=== PATIENT | male | born 1950 | race Caucasian/White ===

== ENCOUNTER → 2021-07-21 | Day surgery (SDC) | payer MEDICARE, OTHER ==
[~2021-07-21] VITALS: Ht 182.9 cm; Wt 61.2 kg
[~2021-07-21] MED LIST: ALBUTEROL2.5 MG/3 M NEB; BYSTOLIC20 MG PO; HCTZ25 MG PO; NORCO 5-325 TA1 EACH PO; ONDANSETRON ODT8 MG PO; SIMVASTATIN10 MG PO; WARFARIN SODIUM5 MG PO
[2021-07-21 09:55] LABS: HCT 45.6 % (42.0-52.0); HGB 14.9 g/dl (13.2-18.0); MCHC 32.7 g/dL (32.0-36.0); MCV 100.9 fL (78.0-100.0); MPV 8.9 fL (6.0-9.5); RBC 4.52 M/uL (4.70-6.00); RDW 12.7 % (11.5-14.0); WBC 7.6 K/uL (4.0-10.5)
[2021-07-21 10:15] LABS: ALBUMIN 3.8 g/dL (3.4-5.0); BILIRUBIN - TOTAL 0.8 mg/dL (0.2-1.0); BUN/CREAT RATIO (CALC) 14.5 RATIO; CREATININE 0.83 mg/dL (0.67-1.17); GLOBULIN (CALCULATION) 3.5 g/dL; POTASSIUM 4.1 mmol/L (3.5-5.1); TOTAL PROTEIN 7.3 g/dL (6.4-8.2)
[2021-07-21 10:16] LABS: INR 0.98 (0.9-1.2); PROTHROMBIN TIME 12.4 SECONDS (11.8-13.4)
--- NOTE | 2021-07-21 15:33 | NUR ---
1510: PT AMBULATORY WITH SUPERVISION TO THE RESTROOM. VOIDED MODERATE AMOUNT OF CLEAR, YELLOW URINE. TOLERATED WELL.
== END | disposition home or self-care (01) ==
LOC: FAS 09:00
PROVIDERS: Surgery
DX: K40.90 Unilateral inguinal hernia, without obstruction or gangrene, not specified as recurrent (principal); J44.9 Chronic obstructive pulmonary disease, unspecified; Z86.73 Personal history of transient ischemic attack (TIA), and cerebral infarction without residual deficits; F17.210 Nicotine dependence, cigarettes, uncomplicated; Z72.89 Other problems related to lifestyle; Z79.01 Long term (current) use of anticoagulants; Z79.82 Long term (current) use of aspirin
CPT/HCPCS: 36415; 80053; 85610; 93005; C1727; C1781; J0690; J1100; J2405; J2704; J2710; J3010; J7120